=== PATIENT | female | born 1970 | race Caucasian/White ===

== ENCOUNTER → 2017-10-30 | Outpatient (CLI) | payer OTHER ==
[2017-10-30 11:22] LABS: CALCIUM 9.2 mg/dL (8.5-10.1)
[2017-10-30 11:41] LABS: POTASSIUM 2.7 mmol/L (3.5-5.1)
== END ==
LOC: M.LAB 11:01
PROVIDERS: Anesthesiology
DX: Z01.812 Encounter for preprocedural laboratory examination (principal); E83.51 Hypocalcemia